=== PATIENT | male | born 2000 | race African-American/Black ===

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

== ENCOUNTER 2021-09-10 10:37 | Emergency (ER) | payer MEDICAID ==
[2021-09-10] MEDS ORDERED: Azithromycin 250 MG TAB ONE (11:31)
[2021-09-10] MEDS ORDERED: cefTRIAXone\\ROCEPHIN 500 MG VIAL ONE (11:31)
[2021-09-10] MEDS ORDERED: Lidocaine 1% PF 5 ML VIAL ONE (11:31)
[2021-09-10 11:36] LABS: Bacteria/HPF None Seen HPF (None Seen); Bilirubin Negative (Negative); Blood, Urine Negative (Negative); Clarity Clear (Clear); Glucose, Urine (Dipstick) Normal (Negative); Ketone, Urine Trace mg/dL (Negative); Leukocyte Negative Leu/uL (Negative); Nitrite Negative (Negative); Protein, Urine (Dipstick) 30 mg/dL (Neg-Trace); RBC/HPF None Seen HPF (0-3); Specific Gravity, Urine 1.023 (1.002-1.036); Squamous Epithelial None Seen HPF (0-3); Urobilinogen 3 mg/dL (Less than 2); pH, Urine 6.5 (5.0-9.0)
== END 2021-09-10 11:56 | disposition home or self-care (01) ==
LOC: ERS 10:37
DX: N34.1 Nonspecific urethritis (principal); F17.210 Nicotine dependence, cigarettes, uncomplicated
CPT/HCPCS: 81003; 81015; 96372; 99283; J0696

== ENCOUNTER 2022-04-11 14:32 | Emergency (ER) | payer OTHER, SELFPAY | END 2022-04-11 15:40 | disposition home or self-care (01) | LOC: ERS 14:32 | DX: S80.812A Abrasion, left lower leg, initial encounter (principal); M54.50 Low back pain, unspecified; V49.9XXA Car occupant (driver) (passenger) injured in unspecified traffic accident, initial encounter | CPT/HCPCS: 99284 ==

== ENCOUNTER 2023-07-07 11:03 | Emergency (ER) | payer SELFPAY | END 2023-07-07 12:14 | disposition left against medical advice (07) | LOC: ERS 11:03 | DX: Z53.21 Procedure and treatment not carried out due to patient leaving prior to being seen by health care provider (principal) ==

== ENCOUNTER 2024-10-18 12:22 | Emergency (ER) | payer SELFPAY ==
[2024-10-18] MEDS ORDERED: metroNIDAZOLE 250 MG TAB ONE (12:45)
== END 2024-10-18 12:55 | disposition home or self-care (01) ==
LOC: ERS 12:22
DX: A59.9 Trichomoniasis, unspecified (principal)
CPT/HCPCS: 99282